=== PATIENT | female | born 1950 | race Caucasian/White ===

== ENCOUNTER → 2016-04-06 | Outpatient (CLI) | payer BC ==
[~2016-04-06] MED LIST: CLOBETASOL EXT; CYCL10TA6 PO; ESTCR PV; LEVO125T4 PO; OXYC1TAB3 PO; TRIATAB3 PO
--- NOTE | 2016-04-06 09:43 | DIAGNOSTIC IMAGING REPORT ---
BILATERAL KNEE RADIOGRAPHS CLINICAL HISTORY: Right knee pain. COMPARISON: Left knee radiographs April 25, 2012. FINDINGS: Right knee: Alignment of the right knee is anatomic. There is spurring of the patella at the insertion of the quadriceps. No fracture or suspicious lesion is identified within the right knee. There is mild narrowing of the patellofemoral joint space with osteophytosis. There is mild osteophytosis within the lateral compartment. There is a possible small right knee joint effusion. Left knee: Alignment of the left knee is anatomic. There is no fracture or joint effusion. There is spurring of the patella at the insertion of the quadriceps. There is mild joint space narrowing within the patellofemoral compartment. There is osteophytosis within the medial and patellofemoral compartments. IMPRESSION: Right knee: 1. Mild arthritis of the right knee, most pronounced within the patellofemoral compartment. 2. Possible small right knee joint effusion. Left knee: Mild arthritis of the left knee, most pronounced within the medial and patellofemoral compartments. Electronically signed by: Pool Boyer M.D. 04/06/2016 9:42 AM Dictated Date/Time: 04/06/2016 9:40 AM
== END | disposition home or self-care (01) ==
LOC: C.RDSM 15:16
PROVIDERS: ATTEND Physical Medicine & Rehabilitation Sports Medicine
DX: M25.561 Pain in right knee (principal); M17.9 Osteoarthritis of knee, unspecified

== ENCOUNTER → 2016-04-24 | Outpatient (CLI) | payer BC ==
--- NOTE | 2016-04-24 16:04 | DIAGNOSTIC IMAGING REPORT ---
MRI right knee RIGHT LOWER EXT JOINT WITHOUT CLINICAL HISTORY: R KNEE PAIN Right pain TECHNIQUE: MRI multi axial acquisition COMPARISON STUDY: None FINDINGS: Signal characteristics the osseous structures are unremarkable throughout. There is no significant bone marrow replacing process. There is a hairline tear posterior horn medial meniscus extending to the inferior meniscal surface. There is no significant substance loss. The lateral meniscus demonstrates a focal hairline tear again extends in to the inferior surface. There is a slight degree of meniscal apical maceration. There are findings of moderate edematous changes in the infrapatellar fat pad. There is no significant joint effusion. Component of mild chondromalacia patella. Medial and lateral patellar retinaculum are intact Anterior and posterior cruciate ligaments are intact. The collateral ligaments structures are unremarkable. IMPRESSION: 1. Focal hairline tear of both the posterior medial and lateral meniscus 2. In both cases, the tear extends to the inferior meniscal surface. 3. No significant meniscal substance loss. 4. Edema of the infrapatellar fat pad. 5. Mild chondromalacia patella. Electronically signed by: Peter Lozada M.D. 04/24/2016 4:03 PM Dictated Date/Time: 04/24/2016 3:53 PM
== END | disposition home or self-care (01) ==
LOC: C.MRI 14:17
PROVIDERS: ATTEND Physical Medicine & Rehabilitation Sports Medicine
DX: M25.561 Pain in right knee (principal)

== ENCOUNTER → 2016-07-05 | Outpatient (CLI) | payer BC ==
[~2016-07-05] MED LIST changes: -LEVO125T4 PO; +LEVO125T5 PO
--- NOTE | 2016-07-05 09:16 | DIAGNOSTIC IMAGING REPORT ---
LEFT FOOT 3 VIEWS HISTORY: LEFT FOOT PAIN COMPARISON: None. FINDINGS: There is no fracture or dislocation. Soft tissue swelling within the first toe. Small plantar and posterior calcaneal spurs. Mild osteoarthritis at the first MTP joint. IMPRESSION: No fractures. Electronically signed by: lAfred Naranjo M.D. 07/05/2016 9:14 AM Dictated Date/Time: 07/05/2016 9:12 AM
== END | disposition home or self-care (01) ==
LOC: C.RAD1850 08:41
PROVIDERS: ATTEND Family Medicine
DX: S99.922A Unspecified injury of left foot, initial encounter (principal); X58.XXXA Exposure to other specified factors, initial encounter

== ENCOUNTER → 2016-10-09 | Outpatient (CLI) | payer BC ==
[~2016-10-09] MED LIST changes: +LEVO125T4 PO; -LEVO125T5 PO
--- NOTE | 2016-10-09 14:33 | MAMMOGRAPHY REPORT ---
BILATERAL DIGITAL SCREENING MAMMOGRAM WITH CAD: 10/09/2016 CLINICAL HISTORY: Routine screening. TECHNIQUE: Bilateral CC and MLO views were obtained. Current study was also evaluated with a Compute r Aided Detection (CAD) system. COMPARISON: Comparison is made to exams dated: 10/06/2015 mammogram, 09/30/2014 mammogram, 09/26/2013 martha mogram, 09/23/2012 mammogram, 09/20/2011 mammogram, and 09/14/2010 mammogram - [facility]. BREAST COMPOSITION: The tissue of both breasts is heterogeneously dense, which may obscure small mas ses. FINDINGS: There are stable benign-appearing coarse calcifications in the anterior aspect of each [address]. Stable intramammary lymph nodes in the upper outer posterior left breast. No suspicious mass, a rchitectural distortion or cluster of microcalcifications is seen. IMPRESSION: ACR BI-RADS CATEGORY 1: NEGATIVE There is no mammographic evidence of malignancy. A 1 year screening mammogram is recommended. The pa tient will receive written notification of the results. Approximately 10% of breast cancers are not detected with mammography. A negative mammographic report should not delay biopsy if a clinically suggestive mass is present. Mitra Fortune M.D. ay/:10/09/2016 14:16:37 Beef Selector: Naima GALLOWAY(Chinmay)(M), [facility] letter sent: Normal 1/2 BI-RADS Code: ACR BI-RADS Category 1: Negative
== END | disposition home or self-care (01) ==
LOC: C.MAMM 07:16
PROVIDERS: ATTEND Family Medicine
DX: Z12.31 Encounter for screening mammogram for malignant neoplasm of breast (principal)

== ENCOUNTER → 2017-02-13 | Outpatient (CLI) | payer OTHER ==
[~2017-02-13] MED LIST changes: -LEVO125T4 PO; +LEVO125T5 PO; +OXYC-90 PO; -OXYC1TAB3 PO
== END | disposition home or self-care (01) ==
LOC: C.MAMM 09:03
PROVIDERS: ATTEND Family Medicine
DX: M85.852 Other specified disorders of bone density and structure, left thigh (principal); M85.851 Other specified disorders of bone density and structure, right thigh

== ENCOUNTER → 2017-03-06 | Outpatient (CLI) | payer OTHER ==
[~2017-03-06] MED LIST changes: -OXYC-90 PO; +OXYC1TAB3 PO
--- NOTE | 2017-03-06 15:16 | DIAGNOSTIC IMAGING REPORT ---
CHEST 2 VIEWS ROUTINE CLINICAL HISTORY: COUGH dyspnea COMPARISON STUDY: No previous studies for comparison. FINDINGS: Parenchymal infiltrate right lower lobe. Lungs otherwise appear clear. Diaphragms smooth. Very slight blunting left lateral costophrenic angle. IMPRESSION: Right lower lobe infiltrate. The above report was generated using voice recognition software. It may contain grammatical, syntax or spelling errors. Electronically signed by: Peter Lozada M.D. 03/06/2017 3:14 PM Dictated Date/Time: 03/06/2017 3:13 PM
== END | disposition home or self-care (01) ==
LOC: C.RAD1850 14:52
PROVIDERS: ATTEND Family Medicine
DX: R05 Cough (principal); R91.8 Other nonspecific abnormal finding of lung field

== ENCOUNTER → 2017-03-22 | Outpatient (CLI) | payer OTHER ==
--- NOTE | 2017-03-22 13:42 | DIAGNOSTIC IMAGING REPORT ---
CHEST 2 VIEWS ROUTINE CLINICAL HISTORY: J15.9 pneumonia COMPARISON STUDY: 03/06/2017 FINDINGS: Improving right infrahilar and right basilar infiltrate. Moderate residual. Left lung is clear. Diaphragms smooth. Pulmonary apices are clear. IMPRESSION: Improving right infrahilar and right basilar infiltrate. Moderate residual. The above report was generated using voice recognition software. It may contain grammatical, syntax or spelling errors. Electronically signed by: Peter Lozada M.D. 03/22/2017 1:41 PM Dictated Date/Time: 03/22/2017 1:40 PM
== END | disposition home or self-care (01) ==
LOC: C.RAD1850 13:31
PROVIDERS: ATTEND Student in an Organized Health Care Education/Training Program
DX: J15.9 Unspecified bacterial pneumonia (principal)

== ENCOUNTER → 2017-10-18 | Outpatient (CLI) | payer OTHER ==
[~2017-10-18] MED LIST changes: +OXYC-90 PO; -OXYC1TAB3 PO
--- NOTE | 2017-10-18 15:11 | MAMMOGRAPHY REPORT ---
BILATERAL DIGITAL SCREENING MAMMOGRAM TOMOSYNTHESIS WITH CAD: 10/18/2017 CLINICAL HISTORY: Routine screening. TECHNIQUE: Breast tomosynthesis in addition to standard 2D mammography was performed. Current study w as also evaluated with a Computer Aided Detection (CAD) system. COMPARISON: Comparison is made to exams dated: 10/09/2016 mammogram, 10/06/2015 mammogram, 09/30/2014 ma mmogram, 09/26/2013 mammogram, 09/23/2012 mammogram, and 09/20/2011 mammogram - [facility]. BREAST COMPOSITION: The tissue of both breasts is heterogeneously dense, which may obscure small mass es. FINDINGS: No suspicious masses, calcifications, or areas of architectural distortion are noted in either breast . There has been no significant interval change compared to prior exams. Scattered bilateral benign-a ppearing calcifications are not significantly changed. IMPRESSION: ACR BI-RADS CATEGORY 2: BENIGN There is no mammographic evidence of malignancy. A 1 year screening mammogram is recommended.( 019) The patient will receive written notification of the results. Some breast cancers are not detected with mammography. A negative mammographic report should not taras y biopsy if a clinically suggestive mass is present. Billie Hutchins M.D. ah/:10/18/2017 13:12:34 Legal Librarian: RT Guerrero(Chinmay)(M), [facility] letter sent: Normal 1/2 BI-RADS Code: ACR BI-RADS Category 2: Benign
== END | disposition home or self-care (01) ==
LOC: C.MAMM 07:07
PROVIDERS: ATTEND Family Medicine
DX: Z12.31 Encounter for screening mammogram for malignant neoplasm of breast (principal)

== ENCOUNTER 2023-07-21 18:58 | Inpatient (IN) ==
[2023-07-21] MEDS: ONDANSETRON INJ 2 MG/ML 2 ML VIAL IV STA (19:31)
[2023-07-21] MEDS: MoRPHine SULFATE 4 MG/ML 1 ML CARP\\VIAL IV STA (19:31)
--- NOTE | 2023-07-21 19:47 | XRay Report ---
XR chest 1V portable HISTORY: port removed, now increased pain COMPARISON: Chest 05/15/2022. FINDINGS: There is been interval removal of the right Port-A-Cath compared to the prior study. There is a punctate radiopaque foreign body remaining within the right upper chest wall. This remains uncha nged. Therefore, this is of doubtful clinical significance. No pneumothorax. No pleural effusions. Th e cardiac silhouette remains borderline enlarged. No focal lung consolidations to suggest a pneumonia . No evidence for pulmonary edema. No acute fractures. IMPRESSION: No acute process. ACT 112: Negative or not required by law. Electronically signed by: Alfred Naranjo M.D. 07/21/2023 7:46 PM
--- NOTE | 2023-07-21 19:50 | Emergency Department Note ---
Impression & Plan Brachiocephalic vein thrombosis ED Provider Note CHIEF COMPLAINT: Right upper chest pain, status post port removal HISTORY OF PRESENT ILLNESS: This 73-year-old female patient past medical history of breast cancer presents to the emergency department with discomfort in the upper chest/neck status post port removal yesterday. Patient states that "feels like a deep vascular pain." She denies ever having a blood clot in the past. She is not currently anticoagulated. REVIEW OF SYSTEMS: A review of systems was performed with positives and pertinent negatives listed in the history of present illness. 10 systems were reviewed and are otherwise negative. ALLERGIES: see below MEDICATIONS: see below PMH: see below SOCIAL HISTORY: see below DDx: DVT, PE, hematoma, pneumonia, pneumothorax among others. PHYSICAL EXAM: Vital signs reviewed. General: Well-appearing 73-year-old female, in no significant distress. HEENT: No scleral icterus, PERRLA, neck supple. Atraumatic. Cardiovascular: Regular rate and rhythm, no extra sounds. Pulmonary: Clear to auscultation bilaterally, normal work of breathing. Abdomen: Soft, nontender, nondistended, positive bowel sounds. Musculoskeletal: Atraumatic, no peripheral edema. Small area of ecchymosis surrounding a 2 cm surgical incision that appears to be well-healing and well- approximated. Neurologic: Patient awake alert and oriented x 3, speech is clear Skin: Warm, dry, no rash EMERGENCY DEPARTMENT COURSE/MDM: This patient was evaluated and appeared to be in no significant distress. IV access was obtained and patient was medicated with IV morphine and Zofran. Ultrasound the right upper extremity was performed and is negative for DVT. I did discuss the case with general surgery, Avinash Grimaldo PA-C. After discussing the case with Dr. Phillips, he has recommended CT of the chest to rule out clot. CT venogram was performed and reveals a small clot in the brachiocephalic vein. Laboratory work was pending. The case was discussed with the hospitalist and anticoagulation will be initiated pending INR/PTT. Patient was informed of the findings and plan for admission. She expressed understanding and agreed. MONITORING: An order for cardiac monitoring was placed and the patient is noted to be in a sinus bradycardia at 55 beats per minute. RADIOLOGY: Chest x-ray to my interpretation reveals no evidence of focal lung consolidation or failure, otherwise defer to radiology's over read. EKG: To my interpretation reveals a sinus rhythm with a second-degree AV block, Mobitz 1. No evidence of acute ischemia. Normal ST segments. DISPOSITION: Admission Past Med/Surg History Problem List (Updated 07/23/23 @ 12:54 by Edda Lovell MD) Brachiocephalic vein thrombosis (Acute) Malignant neoplasm of lower-outer quadrant of left breast of female, estrogen receptor positive (Chronic 01/19/20) Medical History Poor venous access last surgery, had 5-6 attempts, can only use right arm Graves disease Hx of balance disorder (2018) Hx of colonic polyps Port-A-Cath in place (2020) History of left breast cancer (10/2019) left mastectomy 01/15, chemo 03/07/20- 02/2021 History of anxiety History of depression History of chemotherapy (02/2020) TCHP q 21 days cycles 1-6 Pertuzumab + Trastuzumab cycles 7-17 Ziextenzo D2 of cycle Limb alert care status LUE Osteopenia Osteoporosis Hypothyroidism Arthritis Hypertension History of cervical fracture (2012) "pretty good" ROM with neck Surgical History History of removal of Port-a-Cath (07/19/23) Removal Subclavian Access Port(Not Applicable) - Malik Interiano, DO History of infusaport central venous catheter insertion (2020) Hx of salpingo-oophorectomy, bilateral (06/2022) Hx of colonoscopy with polypectomy (2020) History of left mastectomy (01/19/20) History of breast biopsy left - CA H/O: hysterectomy (1995) History of section 1985, 1987 History of myomectomy History of appendectomy History of tonsillectomy history of 1958 Family History Mother Heart disease Hypertension Father Heart disease Aunt No problems noted. Other Family history non-contributory No family history of adverse response to anesthesia No family history of bleeding disorder Social History Smoking Status: Never smoker Tobacco Type: Cigarettes Age Started Using Tobacco: 23; Age Quit Using Tobacco: 23; packs per day: 1; Cigarettes Per Day: 20; Second Hand Exposure: No; Do You Dip or Chew Tobacco: No; Hx Alcohol Use: Yes Alcohol type: beer Alcohol Intake Frequency: 2-3 x/Week Alcohol Intake Frequency Comment: Hx Substance Use: No Preferred Language: Bahraini Communication Ability: Effective Visual Impairment: No Limitations Hearing Ability: Normal [place] Planning Manager Required: Yes and No Beliefs That Will Affect Care: None marital status: Current Living Situation: Spouse Current Living Situation Comment: Lives with , patient is primary caregiver current occupational status: retired current occupation: Former Teacher middle school physics/science How many Children do You have: 2 Feels Safe at Home: Yes Childhood Exposure to Second-Hand Smoke: Yes caffeine: No during the past year weight has: remained stable Dental Care, Regularly: Yes Physical Activity Frequency: 5-6 Times per Week Seatbelt Use: always Sunscreen Use: Yes Assistive Devices: Glasses Allergies Allergies Allergy/AdvReac Type Severity Reaction Status Date / Time nitrofurantoin Allergy Intermediate Hives Verified 07/21/23 21:07 [From Macrobid] Penicillins Allergy Intermediate HIVES, Verified 07/21/23 21:07 JOINTS ACHED, FELT LIKE SKIN WAS CRAWLING. Home Meds Home Medications Medication Instructions Recorded Confirmed cholecalciferol (vitamin D3) 25 1,000 unit PO QDL 01/14/19 07/21/23 mcg (1,000 unit) capsule (Vitamin D3) lactobacillus combination no.4 3 3,000 mmu cells PO QDL 01/14/19 07/21/23 billion cell capsule (Probiotic) levothyroxine 100 mcg tablet 125 mcg PO QAM 01/14/19 07/21/23 multivitamin 1 tab PO QPM 01/14/19 07/21/23 triamterene 37.5 0.5 tab PO Q OTHER DAY 01/14/19 07/21/23 mg-hydrochlorothiazide 25 mg tablet calcium carbonate 600 mg-vitamin 2 tab PO QDL 10/18/20 07/21/23 D3 10 mcg (400 unit) tablet (Calcium with Vitamin D) anastrozole 1 mg tablet 1 mg PO QDL 03/08/21 07/21/23 Previous Rx's Medication Instructions Recorded apixaban 5 mg tablet (Eliquis) 5 mg PO BID #60 tabs 05/26/24 Results & Data (ED) Vital Signs Vital Signs - 24 hr 07/21/23 18:59 07/21/23 19:04 Temperature 36.6 C Temperature Source Temporal Artery Scan Pulse Rate 55 L Pulse Rate [Right Finger] 56 L Respiratory Rate 17 18 Respiratory Depth Normal Blood Pressure 197/80 H Blood Pressure [Right Arm] 175/83 H Blood Pressure Mean 119 Blood Pressure Mean [Right Arm] 113 Pulse Oximetry 98 95 Oxygen Delivery Method Room Air Room Air Sepsis Recent Fever Within 48 Hours No Sepsis New/Unexplained Change in Mental Status No Sepsis Action Taken by Nursing No Action Required Home Medications Current Medication List: was personally reviewed by me Laboratory Data Attestation: I reviewed the patient's lab results. 07/22/23 02:21 07/21/23 22:00 Lab Results 07/21/23 07/21/23 Range/Units 19:31 22:00 WBC 5.55 (4.8-10.8) K/ul RBC 4.12 L (4.20-5.40) M/uL Hgb 12.3 (12.0-16.0) g/dl Hct 35.9 L (37.0-47.0) % MCV 87.1 (80.0-100.0) fL MCH 29.9 (25.0-34.0) pg MCHC 34.3 (32.0-36.0) g/dL RDW Std Deviation 40.5 (36.4-46.3) fL RDW Coeff of Ishan 12.9 (11.5-14.5) % Plt Count 181 (130-400) K/uL MPV 10.1 (9.4-12.4) fL Immature Gran % (Auto) 0.4 % Neut % (Auto) 67.3 % Lymph % (Auto) 22.3 % [place] % (Auto) 8.1 % Eos % (Auto) 1.4 % Baso % (Auto) 0.5 % Neut # (Auto) 3.73 (1.40-6.50) K/uL Lymph # (Auto) 1.24 (1.20-3.40) K/uL Freeborn # (Auto) 0.45 (0.11-0.59) K/uL Eos # (Auto) 0.08 (0.00-0.50) K/uL Baso # (Auto) 0.03 (0.00-0.20) K/uL Immature Gran # (Auto) 0.02 (0.01-0.20) K/uL PT 10.4 (9.0-12.0) Seconds INR 1.0 (0.9-1.1) Sodium 138 (136-145) mmol/L Potassium 4.1 (3.5-5.1) mmol/L Chloride 103 (98-107) mmol/L Carbon Dioxide 30 (21-32) mmol/L Anion Gap 5 (3-11) BUN 20 (6-23) mg/dl Creatinine 0.95 (0.6-1.2) mg/dl Est Cr Clr Drug Dosing 54.8 ml/min Est GFR ( Amer) 69.8 ml/min Est GFR (Non-Af Amer) 60.3 ml/min BUN/Creatinine Ratio 21.1 H (10-20) Glucose 92 (70-99(Fasting)) mg/dl Calcium 9.4 (8.6-10.3) mg/dl Magnesium 1.6 L (1.7-2.4) mg/dl Total Bilirubin 0.3 (0.2-1.0) mg/dl AST 18 (13-39) U/L ALT 13 (7-52) U/L Alkaline Phosphatase 46 (34-104) U/L Troponin I High Sens 10.0 (0-14) pg/ml Total Protein 6.3 (6.0-8.3) gm/dl Albumin 4.1 (3.4-5.0) gm/dl Globulin 2.2 L (2.5-4.0) gm/dl Albumin/Globulin Ratio 1.9 (0.9-2) Administered Medications Discontinued Medications Acetaminophen (Acetaminophen 325 Mg Tab) 650 mg PO Q4H PRN PRN Reason: Pain or Fever Stop: 08/21/23 02:06 Last Admin: 07/22/23 02:44 Dose: 650 mg Documented By: RACHEL Apixaban (Apixaban 5 Mg Tablet) 10 mg PO BID [facility] Stop: 07/28/23 21:01 Last Admin: 07/22/23 09:38 Dose: 10 mg Documented By: NICHO Heparin Sodium/Dextrose (Heparin Iv Adult Wt-Based Standard *No* Initial Bolus Protocol) 1 each IV ONE STA; Protocol Stop: 07/22/23 02:08 Last Admin: 07/22/23 02:43 Dose: 1 each Documented By: RACHEL Hydralazine HCl (Hydralazine Hcl 20 Mg/Ml Vial) 5 mg IV NOW ONE Stop: 07/21/23 22:49 Last Admin: 07/21/23 23:19 Dose: 5 mg Documented By: RYAN Heparin Sodium/Dextrose (Heparin Sodium/Dextrose) 25,000 units in 500 mls @ 24 mls/hr IV .[id number] [facility]; Protocol Stop: 08/21/23 02:06 Last Titration: 07/22/23 09:47 Dose: Infused Documented By: NICHO Co-signed By: JOSHUA Titration: 07/22/23 06:58 Dose: 1,200 units/hr, 24 mls/hr Documented By: NICHO Co-signed By: RACHEL Admin: 07/22/23 02:42 Dose: 1,200 units/hr, 24 mls/hr Documented By: RACHEL Co-signed By: NDL Magnesium Sulfate/Dextrose (Magnesium Sulfate / D5w) 1 gm in 100 mls @ 50 mls/hr IV Q2H [facility] Stop: 07/22/23 06:06 Last Infusion: 07/22/23 05:00 Dose: Infused Documented By: Admin: 07/22/23 02:42 Dose: 50 mls/hr Documented By: Infusion: 07/22/23 02:42 Dose: Infused Documented By: Admin: 07/22/23 02:42 Dose: 50 mls/hr Documented By: RACHEL Ioversol (Optiray 320 125ml) 120 ml IV ONCE ONE Stop: 07/21/23 21:16 Last Admin: 07/21/23 21:15 Dose: 120 ml Documented By: STEPHENIE Levothyroxine Sodium (Levothyroxine Sodium 125 Mcg Tablet) 125 mcg PO DAILYBB [facility] Stop: 08/21/23 06:29 Last Admin: 07/22/23 06:02 Dose: 125 mcg Documented By: YINKA Morphine Sulfate (Morphine Sulfate 4 Mg/Ml 1 Ml Carp\\Vial) 4 mg IV NOW STA Stop: 07/21/23 19:20 Last Admin: 07/21/23 19:31 Dose: 4 mg Documented By: RYAN Morphine Sulfate (Morphine Sulfate 2 Mg/Ml Carp) 2 mg IV Q4H PRN PRN Reason: Pain 5-10 Stop: 08/05/23 02:06 Last Admin: 07/22/23 02:44 Dose: 2 mg Documented By: RACHEL Ondansetron HCl (Ondansetron Inj 2 Mg/Ml 2 Ml Vial) 4 mg IV NOW STA Stop: 07/21/23 19:20 Last Admin: 07/21/23 19:31 Dose: 4 mg Documented By: TJS Imaging Data Radiologist's Impression: Chest X-Ray 07/21/23 19:12 XR chest 1V portable HISTORY: port removed, now increased pain COMPARISON: Chest 05/15/2022. FINDINGS: There is been interval removal of the right Port-A-Cath compared to the prior study. There is a punctate radiopaque foreign body remaining within the right upper chest wall. This remains unchanged. Therefore, this is of doubtful clinical significance. No pneumothorax. No pleural effusions. The cardiac silhouette remains borderline enlarged. No focal lung consolidations to suggest a pneumonia. No evidence for pulmonary edema. No acute fractures. IMPRESSION: No acute process. ACT 112: Negative or not required by law. Electronically signed by: Alfred Naranjo M.D. 07/21/2023 7:46 PM Venous Doppler Study 07/21/23 19:29 Exam(s): US VENOUS RIGHT UPPER EXTREMITY EXAM: US Duplex Right Upper Extremity Veins CLINICAL HISTORY: Reason for exam: s/p port removal, pain. TECHNIQUE: Real-time duplex ultrasound scan of the right upper extremity veins integrating B-mode two-dimensional vascular structure, Doppler spectral analysis, color flow Doppler imaging and compression. COMPARISON: No relevant prior studies available. FINDINGS: Deep veins: Unremarkable. No DVT in the internal jugular, subclavian, axillary, or brachial veins. The veins demonstrate normal color flow, are normally compressible, with normal phasic flow and/or augmentation response. Superficial veins: Unremarkable. No thrombus in the visualized basilic and cephalic veins. Soft tissues: No acute abnormality. IMPRESSION: Normal right upper extremity duplex venous ultrasound. Electronically signed by: Jasen Hi M.D. 07/21/23 21:05 PM Discharge Plan Visit Data Chief Complaint: Shoulder Pain Stated Complaint: SITE PAIN/INCISION/UNDER RT CLAVICLE, SHOULDER P ED Provider: Edda Lovell Discharge Problem: Brachiocephalic vein thrombosis Patient Disposition: Home - Self-Care Condition: Good Discharge Instructions Interventions: ED Discharge Assessment Last Done: 07/22/23 01:56
--- NOTE | 2023-07-21 21:06 | Ultrasound Report ---
Exam(s): US VENOUS RIGHT UPPER EXTREMITY EXAM: US Duplex Right Upper Extremity Veins CLINICAL HISTORY: Reason for exam: s/p port removal, pain. TECHNIQUE: Real-time duplex ultrasound scan of the right upper extremity veins integrating B-mode two-dimensional vascular structure, Doppler spectral analysis, color flow Doppler imaging and compression. COMPARISON: No relevant prior studies available. FINDINGS: Deep veins: Unremarkable. No DVT in the internal jugular, subclavian, axillary, or brachial veins. The veins demonstrate normal color flow, are normally compressible, with normal phasic flow and/or augmentation response. Superficial veins: Unremarkable. No thrombus in the visualized basilic and cephalic veins. Soft tissues: No acute abnormality. IMPRESSION: Normal right upper extremity duplex venous ultrasound. Electronically signed by: Jasen Hi M.D. 07/21/23 21:05 PM
[2023-07-21] MEDS: OPTIRAY 320 125ml IV ONE (21:15)
[2023-07-21 22:37] LABS: Basophils # (auto) 0.03 K/uL (0.00-0.20); Basophils % (auto) 0.5 %; Eosinophils # (auto) 0.08 K/uL (0.00-0.50); Eosinophils % (auto) 1.4 %; Hematocrit (blood only) 35.9 % (37.0-47.0); Hemoglobin 12.3 g/dl (12.0-16.0); Immature Granulocytes # (auto) 0.02 K/uL (0.01-0.20); Immature Granulocytes % (auto) 0.4 %; Lymphocytes # (auto) 1.24 K/uL (1.20-3.40); Lymphocytes % (auto) 22.3 %; Mean Corpuscular Hemoglobin 29.9 pg (25.0-34.0); Mean Corpuscular Hgb Conc 34.3 g/dL (32.0-36.0); Mean Corpuscular Volume 87.1 fL (80.0-100.0); Mean Platelet Volume 10.1 fL (9.4-12.4); Monocytes # (auto) 0.45 K/uL (0.11-0.59); Monocytes % (auto) 8.1 %; Neutrophils # (auto) 3.73 K/uL (1.40-6.50); Neutrophils % (auto) 67.3 %; Platelet Count 181 K/uL (130-400); RDW Coefficient of Variation 12.9 % (11.5-14.5); RDW Standard Deviation 40.5 fL (36.4-46.3); Red Blood Count 4.12 M/uL (4.20-5.40); White Blood Count 5.55 K/ul (4.8-10.8)
--- NOTE | 2023-07-21 22:45 | CT Scan Report ---
Exam(s): CT VENOGRAPHY EXAM: CT Venogram Chest With Intravenous Contrast CLINICAL HISTORY: Reason for exam: R upper chest pain after port removal, clot?. TECHNIQUE: Axial computed tomographic angiography images of the chest with intravenous contrast. CTDI is 12.53 mGy and DLP is 417.08 mGy-cm. Automated exposure control was utilized for the study. A dose lowering technique was utilized adhering to the principles of ALARA. 3D and MIP reconstructed images were created and reviewed. COMPARISON: No relevant prior studies available. FINDINGS: Chest wall venous structures: Subcutaneous gas and infiltration overlying the right pectoralis muscle anterior to the clavicle with small surgical clip consistent with a recent indwelling catheter removal. Small amount of focal subcutaneous hemorrhage. Gas extends into the subcutaneous fat deep to the pectoralis muscle to the level of the right subclavian vein. Inhomogeneous contrast opacification of the right subclavian vein. Thin linear filling defect just proximal to the SVC within the right brachiocephalic vein and superior vena cava consistent with small amount of intraluminal thrombus (coronal series 400 images 23 and 24). The visualized inferior aspect of the inferior vena cava, SVC and left-sided venous structures are all intact. Pulmonary arteries: No pulmonary embolism. Aorta: No thoracic aortic aneurysm or dissection. Lungs: No consolidation. Pleural space: No pleural effusion. No pneumothorax. Heart: No cardiomegaly. No pericardial effusion. No evidence of RV dysfunction. Bones/joints: No acute fracture. Degenerative changes of the spine. Soft tissues: Left breast implant. Abdomen: Multiple subcentimeter hypodense lesions scattered in the liver too small to characterize. IMPRESSION: Right anterior chest wall gas and infiltration consistent with recent indwelling catheter removal. Patent right axillary and subclavian vein through the SVC. Small nonoccluding thin linear filling defect within the right brachiocephalic vein consistent with minimal amount of thrombus. No pulmonary embolism. Electronically signed by: Jasen Hi M.D. 07/21/23 22:44 PM
[2023-07-21 22:53] LABS: Albumin Globulin Ratio 1.9 (0.9-2); Albumin Level 4.1 gm/dl (3.4-5.0); BUN Creatinine Ratio 21.1 (10-20); Bilirubin,Total 0.3 mg/dl (0.2-1.0); Calcium 9.4 mg/dl (8.6-10.3); Creatinine Clr Calc Pharmacy 54.8 ml/min; Est GFR (African American) 69.8 ml/min; Est GFR (Non-African American) 60.3 ml/min; Globulin 2.2 gm/dl (2.5-4.0); Potassium 4.1 mmol/L (3.5-5.1); Total Protein 6.3 gm/dl (6.0-8.3)
--- NOTE | 2023-07-21 22:57 | History & Physical Report ---
Date of Service July 21, 2023 Assessment & Plan (1) Brachiocephalic vein thrombosis: (2) History of removal of Port-a-Cath: (3) Hypertension: (4) Hypothyroidism: (5) History of left breast cancer: (6) Osteoporosis: Gaby Mae is a 73F w/ PMH of hypothyroidism, hypertension, osteoporosis and L breast cancer s/p resection who presents for pain in her neck and upper chest after Port-a-cath removal 07/19/23. R Brachiocephalic Vein Thrombosis - Presenting w/ pain at right upper chest and neck w/ mild edema of the R hand/arm - Recent Port-a-Cath removal 07/19/23 No evidence of infection at side (no erythema or purulence), no leukocytosis - Labs unremarkable - CT Venogram w/ Right anterior chest wall gas and infiltration consistent with recent indwelling catheter removal. Patent right axillary and subclavian vein through the SVC. Small nonoccluding thin linear filling defect within the right brachiocephalic vein consistent with minimal amount of thrombus. No pulmonary embolism. - Given patient's history of breast cancer and recent 'trauma' to the area, would recommend therapeutic anticoagulation - Start Heparin with goal to transition to DOAC (Eliquis) for discharge Discussed duration of therapy with patient, will discuss further at outpatient visits (patient's PCP) - Patient's pain controlled with Morphine on admission Ordered Tylenol PRN and Morphine PRN Bradycardia/Mobitz I - Noted EKG on presentation - Longstanding history of bradycardia on EKG (per patient) Of note, she is very active at baseline - Follow on telemetry while inpatient Hypertension - Chronic, managed with Triamterene-HCTZ outpatient - Patient s/p Hydralazine in ED, patient remained 210/90 on admission - PRN Hydralazine 10 mg IV Q4h ordered on admission for SBP > 200 and DBP > 100 Note to notify provider prior to administration Unable to use PRN beta blockers given bradycardia Chronic Conditions: - Hypothyroidism: Continue Levothyroxine - Breast Cancer: Continue Anastrazole - Osteoporosis: Continue multivitamin, Vitamin D3, and Calcium supplements FEN: Regular Code status: Full Code DVT ppx: Therapeutic Heparin Isolation: None Dispo:Med/Surg w/ Tele History of Present Illness Chief Complaint: Neck Pain Primary Care Provider: DO Carmelita Lowe is a 73F w/ PMH of hypothyroidism, hypertension, osteoporosis and L breast cancer s/p resection who presents for pain in her neck and upper chest after Port-a-cath removal 07/19/23. Patient notes that she had her R. subclavian access port removed 07/19/23. She noted feeling well throughout the day 07/21/23, but that she may have 'overdone it' as she was weeding and mowing her grass. This morning, she started having a deep pain in the right side of her upper chest and neck, she attempted to continue to weed her garden today, but ultimately returned indoors in tears as her neck was hurting so significantly. Patient denies any fevers, chills, or edema at the port-site. Incision has been non-erythematous w/o drainage. She denies chest pain or dyspnea. She is not experiencing headache, vision change, or UE weakness. Patient lives independently and cares for her w/ dementia at baseline. She is very active and enjoys walking, biking, skiing, and yoga. Patient has a history of malignant neoplasm of the left breast, but is status post resection and chemo therapy, recent scans (this year) have all been negative, hence proceeding with port removal. She has had no recent changes in medications. ED Course: Morphine, Zofran, Hydralazine Allergies Allergy/AdvReac Type Severity Reaction Status Date / Time nitrofurantoin Allergy Intermediate Hives Verified 07/21/23 21:07 [From Macrobid] Penicillins Allergy Intermediate HIVES, Verified 07/21/23 21:07 JOINTS ACHED, FELT LIKE SKIN WAS CRAWLING. Home Medications Medication Instructions Recorded Confirmed Type cholecalciferol (vitamin D3) 25 1,000 unit PO QDL 01/14/19 07/21/23 History mcg (1,000 unit) capsule (Vitamin D3) lactobacillus combination no.4 3 3,000 mmu cells PO QDL 01/14/19 07/21/23 History billion cell capsule (Probiotic) levothyroxine 100 mcg tablet 125 mcg PO QAM 01/14/19 07/21/23 History multivitamin 1 tab PO QPM 01/14/19 07/21/23 History triamterene 37.5 0.5 tab PO Q OTHER DAY 01/14/19 07/21/23 History mg-hydrochlorothiazide 25 mg tablet calcium carbonate 600 mg-vitamin 2 tab PO QDL 10/18/20 07/21/23 History D3 10 mcg (400 unit) tablet (Calcium with Vitamin D) anastrozole 1 mg tablet 1 mg PO QDL 03/08/21 07/21/23 History apixaban 5 mg tablet (Eliquis) 5 mg PO BID #60 tabs 07/22/23 Rx Past Med/Surg History Problem List (Updated 07/22/23 @ 00:28 by Jermaine Mcclelland DO) Brachiocephalic vein thrombosis Malignant neoplasm of lower-outer quadrant of left breast of female, estrogen receptor positive (Chronic 01/19/20) Medical History Poor venous access last surgery, had 5-6 attempts, can only use right arm Graves disease Hx of balance disorder (2018) Hx of colonic polyps Port-A-Cath in place (2020) History of left breast cancer (10/2019) left mastectomy 01/15, chemo 03/07/20- 02/2021 History of anxiety History of depression History of chemotherapy (02/2020) TCHP q 21 days cycles 1-6 Pertuzumab + Trastuzumab cycles 7-17 Ziextenzo D2 of cycle Limb alert care status LUE Osteopenia Osteoporosis Hypothyroidism Arthritis Hypertension History of cervical fracture (2012) "pretty good" ROM with neck Surgical History History of removal of Port-a-Cath (07/19/23) Removal Subclavian Access Port(Not Applicable) - Malik Interiano DO History of infusaport central venous catheter insertion (2020) Hx of salpingo-oophorectomy, bilateral (06/2022) Hx of colonoscopy with polypectomy (2020) History of left mastectomy (01/19/20) History of breast biopsy left - CA H/O: hysterectomy (1995) History of section 1985, 1987 History of myomectomy History of appendectomy History of tonsillectomy history of 1958 Family History Mother Heart disease Hypertension Father Heart disease Aunt No problems noted. Other Family history non-contributory No family history of adverse response to anesthesia No family history of bleeding disorder Social History Smoking Status: Never smoker Tobacco Type: Cigarettes Age Started Using Tobacco: 23; Age Quit Using Tobacco: 23; packs per day: 1; Cigarettes Per Day: 20; Second Hand Exposure: No; Do You Dip or Chew Tobacco: No; Hx Alcohol Use: Yes Alcohol type: beer Alcohol Intake Frequency: 2-3 x/Week Alcohol Intake Frequency Comment: Hx Substance Use: No Preferred Language: Colombian Communication Ability: Effective Visual Impairment: No Limitations Hearing Ability: Normal Research Support Specialist Required: Yes and No Beliefs That Will Affect Care: None marital status: Current Living Situation: Spouse Current Living Situation Comment: Lives with , patient is primary caregiver current occupational status: retired current occupation: Former Teacher middle school physics/science How many Children do You have: 2 Feels Safe at Home: Yes Childhood Exposure to Second-Hand Smoke: Yes caffeine: No during the past year weight has: remained stable Dental Care, Regularly: Yes Physical Activity Frequency: 5-6 Times per Week Seatbelt Use: always Sunscreen Use: Yes Assistive Devices: Glasses Physical Exam Physical Exam: Gen: NAD, alert, interactive HEENT: Supple, no LAD, no thyromegaly, no JVD Neck: Mild TTP of right lateral neck and collarbone area w/o edema or erythema, no facial erythema Resp:Non-labored, no wheezing/rhonchi/rales, CTAB CV:bradycardic, regular rhythm, normal S1/S2, no M/R/G Chest: Left upper chest port-a-cath incision clean, dry w/o erythema or purulence, no TTP at site Abd: Soft, non-distended, no TTP, normoactive bowels, no masses Extr: LE - 2+ dp bilaterally, no edema, UE - mild edema or RUE (diminished vascularity of R hand) Results & Data Results & Data Vital Signs (Past 12 Hours) Vital Signs Temp Pulse Pulse Resp BP BP Pulse Ox 07/21/23 22:00 49 L 19 175/88 H 97 07/21/23 21:40 48 L 177/91 H 99 07/21/23 21:00 48 L 14 191/98 H 97 07/21/23 20:55 49 L 14 180/101 H 98 07/21/23 19:04 36.6 C 55 L 18 197/80 H 95 07/21/23 18:59 56 L 17 175/83 H 98 O2 Del Method 07/21/23 22:00 Room Air 07/21/23 21:40 Room Air 07/21/23 21:00 Room Air 07/21/23 20:55 Room Air 07/21/23 19:04 Room Air 07/21/23 18:59 Room Air Supervising Physician Co-Signing Physician Notes Patient seen and examined, chart reviewed, case discussed with Dr. Mcclelland and I agree with the assessment and plan as above Resident Activity Tracking Resident Involvement: Resident Care Provided Care Provided: Adult Hospital Medicine (Night)
[2023-07-21 23:11] LABS: Magnesium 1.6 mg/dl (1.7-2.4)
[2023-07-21] MEDS: hydrALAZINE HCL 20 MG/ML VIAL IV ONE (23:19)
[2023-07-21 23:34] LABS: Prothrombin Time 10.4 Seconds (9.0-12.0)
--- NOTE | 2023-07-22 01:38 | Billing Data ---
Date of Service July 21, 2023 Coding Level of Care Code 64214 INT INP/OBS CARE
[2023-07-22] MEDS ORDERED: hydrALAZINE HCL 20 MG/ML VIAL IV PRN (02:07)
[2023-07-22] MEDS ORDERED: POLYETHYLENE (MIRALAX) 17 GM PACK PO PRN (02:07)
[2023-07-22] MEDS ORDERED: ONDANSETRON INJ 2 MG/ML 2 ML VIAL IV PRN (02:07)
[2023-07-22] MEDS: HEPARIN SODIUM/DEXTROSE 25,000 UNITS/500 ML BAG IV SCH (02:42)
[2023-07-22] MEDS: MAGNESIUM SULFATE / D5W 1 GM/100 ML BAG IV SCH (02:42)
[2023-07-22] MEDS: Heparin IV Adult Wt-Based Standard *NO* INITIAL Bolus Protocol IV STA (02:43)
[2023-07-22] MEDS: ACETAMINOPHEN 325 MG TAB PO PRN (02:44)
[2023-07-22] MEDS: MoRPHine SULFATE 2 MG/ML CARP IV PRN (02:44)
[2023-07-22 03:07] LABS: Partial Thromboplastin Ratio 0.9; Partial Thromboplastin Time 24 Seconds (21-31); Prothrombin Time 10.7 Seconds (9.0-12.0)
[2023-07-22 03:25] LABS: Basophils # (auto) 0.03 K/uL (0.00-0.20); Basophils % (auto) 0.5 %; Eosinophils % (auto) 1.7 %; Hematocrit (blood only) 36.3 % (37.0-47.0); Hemoglobin 12.6 g/dl (12.0-16.0); Immature Granulocytes # (auto) 0.02 K/uL (0.01-0.20); Immature Granulocytes % (auto) 0.3 %; Lymphocytes # (auto) 1.39 K/uL (1.20-3.40); Lymphocytes % (auto) 23.2 %; Mean Corpuscular Hgb Conc 34.7 g/dL (32.0-36.0); Mean Corpuscular Volume 86.4 fL (80.0-100.0); Mean Platelet Volume 9.9 fL (9.4-12.4); Monocytes # (auto) 0.54 K/uL (0.11-0.59); Neutrophils # (auto) 3.91 K/uL (1.40-6.50); Neutrophils % (auto) 65.3 %; Platelet Count 195 K/uL (130-400); RDW Coefficient of Variation 12.9 % (11.5-14.5); RDW Standard Deviation 40.3 fL (36.4-46.3); White Blood Count 5.99 K/ul (4.8-10.8)
[2023-07-22] MEDS: LEVOTHYROXINE SODIUM 125 MCG TABLET PO SCH (06:02)
[2023-07-22 06:17] VITALS: O2SAT 95
--- NOTE | 2023-07-22 07:08 | Hospitalist Progress Note ---
Date of Service July 22, 2023 Assessment & Plan (1) Brachiocephalic vein thrombosis: (2) History of removal of Port-a-Cath: (3) Hypertension: (4) Hypothyroidism: (5) History of left breast cancer: (6) Osteoporosis: Gaby Mae is a 73F w/ PMH of hypothyroidism, hypertension, osteoporosis and L breast cancer s/p resection who presents for pain in her neck and upper chest after Port-a-cath removal 07/19/23. R Brachiocephalic Vein Thrombosis - Presenting w/ pain at right upper chest and neck w/ mild edema of the R hand/arm - Recent Port-a-Cath removal 07/19/23 No evidence of infection at side (no erythema or purulence), no leukocytosis - Labs unremarkable - CT Venogram w/ Right anterior chest wall gas and infiltration consistent with recent indwelling catheter removal. Patent right axillary and subclavian vein through the SVC. Small nonoccluding thin linear filling defect within the right brachiocephalic vein consistent with minimal amount of thrombus. No pulmonary embolism. - Given patient's history of breast cancer and recent 'trauma' to the area, would recommend therapeutic anticoagulation - Start Heparin with goal to transition to DOAC (Eliquis) for discharge Discussed duration of therapy with patient, will discuss further at outpatient visits (patient's PCP) - Patient's pain controlled with Morphine on admission Ordered Tylenol PRN and Morphine PRN Bradycardia/Mobitz I - Noted EKG on presentation - Longstanding history of bradycardia on EKG (per patient) Of note, she is very active at baseline - Follow on telemetry while inpatient Hypertension - Chronic, managed with Triamterene-HCTZ outpatient - Patient s/p Hydralazine in ED, patient remained 210/90 on admission - PRN Hydralazine 10 mg IV Q4h ordered on admission for SBP > 200 and DBP > 100 Note to notify provider prior to administration Unable to use PRN beta blockers given bradycardia Chronic Conditions: - Hypothyroidism: Continue Levothyroxine - Breast Cancer: Continue Anastrazole - Osteoporosis: Continue multivitamin, Vitamin D3, and Calcium supplements FEN: Regular Code status: Full Code DVT ppx: Therapeutic Heparin Isolation: None Dispo:Med/Surg w/ Tele Admission and Anticipated Discharge Date Admission Date: July 21, 2023 Review of Systems Review of Systems: All systems reviewed & are unremarkable except as noted in HPI & below Physical Exam Physical Exam: Gen: NAD, alert, interactive HEENT: Supple, no LAD, no thyromegaly, no JVD Neck: Mild TTP of right lateral neck and collarbone area w/o edema or erythema, no facial erythema Resp:Non-labored, no wheezing/rhonchi/rales, CTAB CV:bradycardic, regular rhythm, normal S1/S2, no M/R/G Chest: Left upper chest port-a-cath incision clean, dry w/o erythema or purulence, no TTP at site Abd: Soft, non-distended, no TTP, normoactive bowels, no masses Extr: LE - 2+ dp bilaterally, no edema, UE - mild edema or RUE (diminished vascularity of R hand) Results & Data Results & Data Vital Signs (Past 12 Hours) Vital Signs Temp Pulse Pulse Resp BP BP Pulse Ox 07/22/23 06:15 36.4 C L 48 L 18 146/68 H 95 07/22/23 03:12 36.6 C 71 18 179/65 H 98 07/22/23 03:11 47 L 07/22/23 02:51 36.4 C L 48 L 16 174/85 H 97 07/22/23 02:07 36.5 C 71 18 179/65 H 95 07/22/23 02:07 07/22/23 01:56 52 L 13 142/81 H 95 07/22/23 01:00 51 L 17 151/79 H 95 07/22/23 00:30 54 L 17 157/78 H 95 07/22/23 00:00 50 L 18 168/111 H 96 07/21/23 23:02 52 L 17 211/82 H 98 07/21/23 22:30 47 L 17 182/105 H 95 07/21/23 22:01 45 L 15 175/88 H 96 07/21/23 22:00 49 L 19 175/88 H 97 07/21/23 21:40 48 L 177/91 H 99 07/21/23 21:00 48 L 14 191/98 H 97 07/21/23 20:55 49 L 14 180/101 H 98 Pulse Ox O2 Del Method O2 Del Method 07/22/23 06:15 Room Air 07/22/23 03:12 Room Air 07/22/23 03:11 07/22/23 02:51 Room Air 07/22/23 02:07 Room Air 07/22/23 02:07 98 Room Air 07/22/23 01:56 Room Air 07/22/23 01:00 Room Air 07/22/23 00:30 Room Air 07/22/23 00:00 Room Air 07/21/23 23:02 Room Air 07/21/23 22:30 Room Air 07/21/23 22:01 Room Air 07/21/23 22:00 Room Air 07/21/23 21:40 Room Air 07/21/23 21:00 Room Air 07/21/23 20:55 Room Air Resident Activity Tracking Resident Involvement: Resident Care Provided Care Provided: Adult Hospital Medicine
[2023-07-22 07:48] VITALS: BP 126/72; RESP 16; TEMP 98.2
--- NOTE | 2023-07-22 09:16 | Discharge Summary ---
Date of Service July 22, 2023 Admission HPI Per Admitting Provider Carmelita is a 73F w/ PMH of hypothyroidism, hypertension, osteoporosis and L breast cancer s/p resection who presents for pain in her neck and upper chest after Port-a-cath removal 07/19/23. Patient notes that she had her R. subclavian access port removed 07/19/23. She noted feeling well throughout the day 07/21/23, but that she may have 'overdone it' as she was weeding and mowing her grass. This morning, she started having a deep pain in the right side of her upper chest and neck, she attempted to continue to weed her garden today, but ultimately returned indoors in tears as her neck was hurting so significantly. Patient denies any fevers, chills, or edema at the port-site. Incision has been non-erythematous w/o drainage. She denies chest pain or dyspnea. She is not experiencing headache, vision change, or UE weakness. Patient lives independently and cares for her w/ dementia at baseline. She is very active and enjoys walking, biking, skiing, and yoga. Patient has a history of malignant neoplasm of the left breast, but is status post resection and chemo therapy, recent scans (this year) have all been negative, hence proceeding with port removal. She has had no recent changes in medications. ED Course: Morphine, Zofran, Hydralazine Principal Diagnosis DVT Discharge Exam Gen: NAD, alert, interactive HEENT: Supple, no LAD, no thyromegaly, no JVD Neck: previous tenderness of neck and collarbone area now resolved w/o edema or erythema, no facial erythema Resp:Non-labored, no wheezing/rhonchi/rales, CTAB CV:bradycardic, regular rhythm Chest: Left upper chest port-a-cath incision c/d/i Abd: Soft, non-distended, no TTP Extr: LE - 2+ dp bilaterally, no edema Discharge Data Allergies Allergy/AdvReac Type Severity Reaction Status Date / Time nitrofurantoin Allergy Intermediate Hives Verified 07/21/23 21:07 [From Macrobid] Penicillins Allergy Intermediate HIVES, Verified 07/21/23 21:07 JOINTS ACHED, FELT LIKE SKIN WAS CRAWLING. Consultations 07/21/23 22:49 ED Decision to Admit Stat Ordered Studies Laboratory Results WBC 5.99 K/ul (4.8-10.8) 07/22/23 02:21 RBC 4.20 M/uL (4.20-5.40) 07/22/23 02:21 Hgb 12.6 g/dl (12.0-16.0) 07/22/23 02:21 Hct 36.3 % (37.0-47.0) L 07/22/23 02:21 MCV 86.4 fL (80.0-100.0) 07/22/23 02:21 MCH 30.0 pg (25.0-34.0) 07/22/23 02:21 MCHC 34.7 g/dL (32.0-36.0) 07/22/23 02:21 RDW Std Deviation 40.3 fL (36.4-46.3) 07/22/23 02:21 RDW Coeff of Ishan 12.9 % (11.5-14.5) 07/22/23 02:21 Plt Count 195 K/uL (130-400) 07/22/23 02:21 MPV 9.9 fL (9.4-12.4) 07/22/23 02:21 Immature Gran % (Auto) 0.3 % 07/22/23 02:21 Neut % (Auto) 65.3 % 07/22/23 02:21 Lymph % (Auto) 23.2 % 07/22/23 02:21 [place] % (Auto) 9.0 % 07/22/23 02:21 Eos % (Auto) 1.7 % 07/22/23 02:21 Baso % (Auto) 0.5 % 07/22/23 02:21 Neut # (Auto) 3.91 K/uL (1.40-6.50) 07/22/23 02:21 Lymph # (Auto) 1.39 K/uL (1.20-3.40) 07/22/23 02:21 [place] # (Auto) 0.54 K/uL (0.11-0.59) 07/22/23 02:21 Eos # (Auto) 0.10 K/uL (0.00-0.50) 07/22/23 02:21 Baso # (Auto) 0.03 K/uL (0.00-0.20) 07/22/23 02:21 Immature Gran # (Auto) 0.02 K/uL (0.01-0.20) 07/22/23 02:21 PT 10.7 Seconds (9.0-12.0) 07/22/23 02:21 INR 1.0 (0.9-1.1) 07/22/23 02:21 APTT 24 Seconds (21-31) 07/22/23 02:21 PTT Ratio 0.9 07/22/23 02:21 Sodium 138 mmol/L (136-145) 07/21/23 22:00 Potassium 4.1 mmol/L (3.5-5.1) 07/21/23 22:00 Chloride 103 mmol/L (98-107) 07/21/23 22:00 Carbon Dioxide 30 mmol/L (21-32) 07/21/23 22:00 Anion Gap 5 (3-11) 07/21/23 22:00 BUN 20 mg/dl (6-23) 07/21/23 22:00 Creatinine 0.95 mg/dl (0.6-1.2) 07/21/23 22:00 Est Cr Clr Drug Dosing 54.8 ml/min 07/21/23 22:00 Est GFR ( Amer) 69.8 ml/min 07/21/23 22:00 Est GFR (Non-Af Amer) 60.3 ml/min 07/21/23 22:00 BUN/Creatinine Ratio 21.1 (10-20) H 07/21/23 22:00 Glucose 92 mg/dl (70-99(Fasting)) 07/21/23 22:00 Calcium 9.4 mg/dl (8.6-10.3) 07/21/23 22:00 Magnesium 1.6 mg/dl (1.7-2.4) L 07/21/23 22:00 Total Bilirubin 0.3 mg/dl (0.2-1.0) 07/21/23 22:00 AST 18 U/L (13-39) 07/21/23 22:00 ALT 13 U/L (7-52) 07/21/23 22:00 Alkaline Phosphatase 46 U/L (34-104) 07/21/23 22:00 Troponin I High Sens 10.0 pg/ml (0-14) 07/21/23 22:00 Total Protein 6.3 gm/dl (6.0-8.3) 07/21/23 22:00 Albumin 4.1 gm/dl (3.4-5.0) 07/21/23 22:00 Globulin 2.2 gm/dl (2.5-4.0) L 07/21/23 22:00 Albumin/Globulin Ratio 1.9 (0.9-2) 07/21/23 22:00 Impressions Chest X-Ray 07/21/23 19:12 XR chest 1V portable HISTORY: port removed, now increased pain COMPARISON: Chest 05/15/2022. FINDINGS: There is been interval removal of the right Port-A-Cath compared to the prior study. There is a punctate radiopaque foreign body remaining within the right upper chest wall. This remains unchanged. Therefore, this is of doubtful clinical significance. No pneumothorax. No pleural effusions. The cardiac silhouette remains borderline enlarged. No focal lung consolidations to suggest a pneumonia. No evidence for pulmonary edema. No acute fractures. IMPRESSION: No acute process. ACT 112: Negative or not required by law. Electronically signed by: Alfred Naranjo M.D. 07/21/2023 7:46 PM Venous Doppler Study 07/21/23 19:29 Exam(s): US VENOUS RIGHT UPPER EXTREMITY EXAM: US Duplex Right Upper Extremity Veins CLINICAL HISTORY: Reason for exam: s/p port removal, pain. TECHNIQUE: Real-time duplex ultrasound scan of the right upper extremity veins integrating B-mode two-dimensional vascular structure, Doppler spectral analysis, color flow Doppler imaging and compression. COMPARISON: No relevant prior studies available. FINDINGS: Deep veins: Unremarkable. No DVT in the internal jugular, subclavian, axillary, or brachial veins. The veins demonstrate normal color flow, are normally compressible, with normal phasic flow and/or augmentation response. Superficial veins: Unremarkable. No thrombus in the visualized basilic and cephalic veins. Soft tissues: No acute abnormality. IMPRESSION: Normal right upper extremity duplex venous ultrasound. Electronically signed by: Jasen Hi M.D. 07/21/23 21:[address] 07/21/23 20:57 Exam(s): CT VENOGRAPHY EXAM: CT Venogram Chest With Intravenous Contrast CLINICAL HISTORY: Reason for exam: R upper chest pain after port removal, clot?. TECHNIQUE: Axial computed tomographic angiography images of the chest with intravenous contrast. CTDI is 12.53 mGy and DLP is 417.08 mGy-cm. Automated exposure control was utilized for the study. A dose lowering technique was utilized adhering to the principles of ALARA. 3D and MIP reconstructed images were created and reviewed. COMPARISON: No relevant prior studies available. FINDINGS: Chest wall venous structures: Subcutaneous gas and infiltration overlying the right pectoralis muscle anterior to the clavicle with small surgical clip consistent with a recent indwelling catheter removal. Small amount of focal subcutaneous hemorrhage. Gas extends into the subcutaneous fat deep to the pectoralis muscle to the level of the right subclavian vein. Inhomogeneous contrast opacification of the right subclavian vein. Thin linear filling defect just proximal to the SVC within the right brachiocephalic vein and superior vena cava consistent with small amount of intraluminal thrombus (coronal series 400 images 23 and 24). The visualized inferior aspect of the inferior vena cava, SVC and left-sided venous structures are all intact. Pulmonary arteries: No pulmonary embolism. Aorta: No thoracic aortic aneurysm or dissection. Lungs: No consolidation. Pleural space: No pleural effusion. No pneumothorax. Heart: No cardiomegaly. No pericardial effusion. No evidence of RV dysfunction. Bones/joints: No acute fracture. Degenerative changes of the spine. Soft tissues: Left breast implant. Abdomen: Multiple subcentimeter hypodense lesions scattered in the liver too small to characterize. IMPRESSION: Right anterior chest wall gas and infiltration consistent with recent indwelling catheter removal. Patent right axillary and subclavian vein through the SVC. Small nonoccluding thin linear filling defect within the right brachiocephalic vein consistent with minimal amount of thrombus. No pulmonary embolism. Electronically signed by: Jasen Hi M.D. 07/21/23 22:44 PM Hospital Course (1) Brachiocephalic vein thrombosis: Carmelita is a 73F w/ PMH of hypothyroidism, hypertension, osteoporosis and L breast cancer s/p resection who presents for pain in her neck and upper chest after Port-a-cath removal 07/19/23. #DVT- R Brachiocephalic Vein Thrombosis, provoked - Presenting w/ pain at right upper chest and neck w/ mild edema of the R hand/ arm - recent Port-a-Cath removal 07/19/23 - CT Venogram: Small nonoccluding thin linear filling defect within the right brachiocephalic vein consistent with minimal amount of thrombus - started on heparin gtt on admission - transitioned to Eliquis (10mg BID x10 days then 5mg BID) - tx for ~3 months total #Bradycardia/Arrhythmia - EKG on admission questionable for [place] heart block - however P waves are less suggestive of this and arrhythmia more likely her chronic PACs. No lightheadedness/dizziness. - Tele overnight showed more PACs if anything as well. - Repeat EKG in sinus vin - no longer with heart block. Hypertension - Cont. Triamterene-HCTZ outpatient Chronic Conditions: - Hypothyroidism: Continue Levothyroxine - Breast Cancer: Continue Anastrazole - Osteoporosis: Continue multivitamin, Vitamin D3, and Calcium supplements (2) History of removal of Port-a-Cath: (3) Hypertension: (4) Hypothyroidism: (5) History of left breast cancer: (6) Osteoporosis: Total Time Total Time Spent Total Time Spent (In Minutes): <30 Discharge Plan Discharge Items Patient Disposition: Home - Self-Care Reason For Visit: BRACHIOCEPHALIC VEIN THROMBUS, ARRHYTHMIA Discharge Diagnosis: DVT Condition on Discharge: Good Activity: Per Instructions section Non-emergency contact: Primary Care Provider Call non-emergency contact if: you have any medication questions, your symptoms worsen and you have a fever Follow-up/Referrals: Jermaine Mcclelland DO [Primary Care Provider] - Diet: Heart Healthy Addtl Attending Provider Instructions: You were found to have a clot in your right upper extremity which was likely causing your symptoms. The clot was most likely provoked from removal of your port. You will need about 3 months of blood thinners for treatment. Follow up with your PCP for further instruction. Pending Studies at Discharge: No Stand-Alone Forms: My [employer], Smoking Cessation Medications and DC Order Prescriptions: New Eliquis 5 mg tablet 5 mg PO BID Qty: 60 0RF Rx Instructions: 10mg (2 pills) BID x10 days then 5mg (1 pill) BID; next dose evening of 07/21 Continued calcium carbonate-vitamin D3 [Calcium with Vitamin D] 600 mg(1,500mg) -400 unit tablet 2 tab PO QDL anastrozole 1 mg tablet 1 mg PO QDL multivitamin Tablet 1 tab PO QPM levothyroxine 100 mcg tablet 125 mcg PO QAM triamterene-hydrochlorothiazid 37.5-25 mg tablet 0.5 tab PO Q OTHER DAY cholecalciferol (vitamin D3) [Vitamin D3] 1,000 unit Capsule 1,000 unit PO QDL Probiotic 3 billion cell Capsule 3,000 mmu cells PO QDL Discharge Orders: Discharge Order (Routine); Ordered 07/22/23 Ordered By: Perez eLigh Admission Data Admit Date/Time: 07/21/23 23:59 Attending Provider: Dino Ruano Admit Provider: Jermaine Mcclelland Primary Care Provider: Jermaine Mcclelland Other Providers: Sheri Foreman Other Interventions: Discharge Summary Assessment (RN) Last Done: 07/22/23 09:50 Supervising Physician Co-Signing Physician Notes I personally examined the patient and verified all rueda points of history and exam, discussed case, and agree with decision making with Dr Leigh Feeling much better, feeling up to getting out of here. No new problems, arm feels much better. Discussed clot, and how small it is, and suspecting that her symptoms were probably much more multifactorial than purely clot related alone. Vitals noted, in general she is awake and alert pleasant no distress. HEENT normocephalic atraumatic mucous membranes moist. Breathing unlabored no accessory muscle use good effort. Skin shows no rashes no pallor or icterus. Neuro without focal deficits. Arm painrecent port removal, she does have a small brachiocephalic DVT which probably does contribute, but I also wonder if some of it was not overdoing it with her yard work the day before having just had surgery, some of it regular postop bruising and swelling, and of course some related to the clot. At any rate, definitely need to manage the clotDOAChome on Eliquis, anticipate only needing 3 months of treatment given that it was such a clearly provoking set of circumstances that have now passed. Follow-up PCP. Safe/stable for home. Otherwise as above. Resident Activity Tracking Resident Involvement: Resident Care Provided Care Provided: Adult Hospital Medicine
[2023-07-22 09:33] LABS: ANTI-Xa, UFH(UnfractionatedHep 0.55 IU/ml (0.3-0.7)
[2023-07-22] MEDS: APIXABAN 5 MG TABLET PO SCH (09:38)
[2023-07-22 09:51] VITALS: PULSE 53
[2023-07-22] MEDS ORDERED: CHOLECALCIFEROL 25 MCG (1000 UNITS) TAB PO SCH (11:30)
[2023-07-22] MEDS ORDERED: CALCIUM 600MG + VIT D 400 IU TAB PO SCH (11:30)
[2023-07-22] MEDS ORDERED: ADVANCED PROBIOTIC 625 MG CAPSULE PO SCH (11:30)
[2023-07-22] MEDS ORDERED: ANASTROZOLE 1 MG TAB PO SCH (11:30)
--- NOTE | 2023-07-22 16:33 | Billing Data ---
Date of Service July 22, 2023 Coding Level of Care Code 73264 IN/OBS DISCH 30 MIN/LESS
--- NOTE | 2023-07-22 16:33 | Billing Data ---
Date of Service July 22, 2023 Coding Level of Care Code 49939 IN/OBS DISCH 30 MIN/LESS
[2023-07-22] MEDS ORDERED: MULTIVITAMIN TAB PO SCH (21:00)
--- NOTE | 2023-07-22 21:41 | Electrocardiogram Report ---
Test Reason : Blood Pressure : / mmHG Vent. Rate : 069 BPM Atrial Rate : 117 BPM P-R Int : 000 ms QRS Dur : 088 ms QT Int : 420 ms P-R-T Axes : 000 077 044 degrees QTc Int : 450 ms Sinus rhythm with sinus arrhythmia Suspect sinus node exit block Cannot rule out Anterior infarct (cited on or before 21-JUL-2023) Abnormal ECG When compared with ECG of 12-JUL-2023 09:28, Sinus arrhythmia is now present Confirmed by Kannan Slade ([id number]) on 07/22/2023 9:41:10 PM Referred By: REFERRED SELF Confirmed By:Kannan Slade
--- NOTE | 2023-07-22 21:52 | Electrocardiogram Report ---
Test Reason : Blood Pressure : / mmHG Vent. Rate : 049 BPM Atrial Rate : 049 BPM P-R Int : 166 ms QRS Dur : 086 ms QT Int : 438 ms P-R-T Axes : 082 053 033 degrees QTc Int : 395 ms Sinus bradycardia Possible Anteroseptal infarct (cited on or before 21-JUL-2023) Abnormal ECG When compared with ECG of 21-JUL-2023 21:41, (unconfirmed) HR has decreased Confirmed by Kannan Slade ([id number]) on 07/22/2023 9:51:48 PM Referred By: REFERRED SELF Confirmed By:Kannan Slade
[2023-07-23] MEDS ORDERED: TRIAMTERENE/HCTZ 37.5/25MG TAB PO SCH (09:00)
--- NOTE | 2023-07-24 12:56 | Electrocardiogram Report ---
Test Reason : Blood Pressure : / mmHG Vent. Rate : 059 BPM Atrial Rate : 059 BPM P-R Int : 156 ms QRS Dur : 096 ms QT Int : 444 ms P-R-T Axes : 077 071 061 degrees QTc Int : 439 ms Sinus bradycardia with Premature atrial complexes Otherwise normal ECG When compared with ECG of 21-JUL-2023 22:50, Premature atrial complexes are now Present Confirmed by Jostin Rogers ([id number]) on 07/24/2023 12:55:43 PM Referred By: REFERRED SELF Confirmed By:Jostin Rogers
--- OUTSIDE RECORDS SUMMARY | 2023-08-03 23:44 | External Medical Summary | Continuity of Care Document ---
Author Name Unknown Organization [facility] [id number] [address] [place] [address] [phone] Care Team Providers Care Chief Pilot Name Role Phone Jermaine Mcclelland Primary Care Physician [phone] Encounter [facility] [id number] Date(s): 07/20/23 - 07/20/23 [facility] [address] Medical [facility] [address] [address] [phone] Encounter Diagnosis Body mass index [BMI] 22.0-22.9, adult(Discharge Diagnosis) - 07/20/23 Osteoarthritis of left knee(Discharge Diagnosis) - 07/20/23 Knee pain(Discharge Diagnosis) - 07/20/23 Discharge Disposition: Home or Self Care Attending Physician: DO Murphy Gretchen Elizabeth Allergies, Adverse Reactions, Alerts Substance Criticality Severity Reaction Reaction Severity Status lisinopril hives Active Macrobid rash Active PCN (penicillin) rash Act netta Immunizations Given and Recorded Vaccine Date Status Refusal Reason SARS-CoV-2 (COVID-19) mRNA-1273 vaccine 1 10/10/21 Recorded SARS-CoV-2 (COVID-19) mRNA-1273 vaccine 2 06/22/21 Recorded SARS-CoV-2 (COVID-19) mRNA-1273 vaccine 3 05/31/20 Recorded SARS-CoV-2 (COVID-19) mRNA-1273 vaccine 4 05/03/20 Recorded tetanus/diphtheria/pertuss, acel (Tdap) 08/12/21 G iven tetanus/diphtheria/pertuss, acel (Tdap) 04/15/10 R ecorded influenza virus vaccine, inactivated 11/18/20 Justyn rded influenza virus vaccine, inactivated 11/05/19 Justyn rded influenza virus vaccine, inactivated 12/19/17 Give n influenza virus vaccine, inactivated 12/20/16 Justyn rded influenza virus vaccine, inactivated 01/18/16 Justyn rded influenza virus vaccine, inactivated 01/27/15 Justyn rded influenza virus vaccine, inactivated 11/10/13 Give n influenza virus vaccine, inactivated 01/27/13 Give n influenza virus vaccine, inactivated 5 02/15/12 Re corded pneumococcal 23-valent vaccine 11/05/19 Recorded pneumococcal 23-valent vaccine 04/19/01 Recorded zoster vaccine, inactivated 10/09/17 Recorded zoster vaccine, inactivated 06/18/17 Recorded pneumococcal 13-valent vaccine 01/10/17 Given zoster vaccine live 03/11/12 Recorded zoster vaccine live 6 03/11/12 Recorded 1Result Comment: 2021-10-19: Historical information-source unspecified 2Result Comment: 2021-08-12: Historical information-source unspecified 3Result Comment: 2020-10-18: Historical information-source unspecified 4Result Comment: 2020-10-18: Historical information-source unspecified 5Result Comment: [02/29/2012] [facility] [address] 6Result Comment: [04/25/2012] Received @ [facility] Medications albuterol CFC free 90 mcg/inh MDI Start: 03/26/17 11:17:00 AM EST, 2 puff, inhaled, q4h, Disp# 1 each, Refills: 11, use with spacer chamber, PRN: as needed for wheezing, Pharmacy: [facility] Start Date: 03/26/17 Status: Ordered anastrozole 1 mg oral tablet Start: 10/20/20 10:35:00 AM EDT, 1 tab, PO, Daily Start Date: 10/20/20 Status: Ordered betamethasone dipropionate 0.05% topical cream Start: 09/25/22 2:25:00 PM EDT, 1 appl, topical, Daily, Disp# 50 g, Pharmacy: [facility] Start Date: 09/25/22 Status: Ordered calcium (as carbonate)-vitamin D 600 mg-125 intl units (3.125 mcg) oral tablet Start: 07/20/20 3:15:00 PM EDT, 1 tab, PO, bid Start Date: 07/20/20 Status: Ordered hydrochlorothiazide-triamterene 25 mg-37.5 mg oral tablet Start: 01/22/23 3:21:00 PM EST, 0.5 tab, PO, Every other day, Disp# 45 tab, Refills: 2, Pharmacy: [facility] Start Date: 01/22/23 Status: Ordered levothyroxine 125 mcg (0.125 mg) oral tablet Start: 07/16/23 9:04:00 PM EDT, 1 tab, PO, Daily, Disp# 30 tab, Refills: 3, Pharmacy: [facility] Start Date: 07/16/23 Status: Ordered Multiple Vitamins oral tablet Start: 11/14/12 2:18:00 PM EDT, 1 tab, PO, Daily Start Date: 11/14/12 Status: Ordered Nerlynx 40 mg oral tablet Start: 01/11/22 1:33:00 PM EST, 6 tab, PO, Daily Start Date: 01/11/22 Status: Ordered Probiotic Formula Start: 04/12/20 1:19:00 PM EST Start Date: 04/12/20 Status: Ordered Prolia 60 mg syringe - PROVIDER injection Start: 11/03/21 4:42:00 PM EDT, 60 mg =, subQ, [id number] Start Date: 11/03/21 Status: Ordered Vitamin D3 1000 intl units oral capsule Start: 04/15/10 11:18:00 AM EST, 1 cap, PO, Daily, Disp# 100 cap, Stop: 04/15/34 11:19:00 AM EST, given to patient Start Date: 04/15/10 Stop Date: 04/15/34 Status: Ordered Mental Status 07/20/23 Barriers to Learning one year None evide nt Mandatory Health Literacy Documentation Yes Health Literacy Communication Barriers N ever Primary Language Palauan Problem List Condition Confirmation Course Effective Dates Status H ealth Status Informant Actinic keratosis Confirmed Active ASCVD (arteriosclerotic cardiovascular disease) 1 Confirmed Active High risk for hip fracture 2 Confirmed 06/21/20 Active Multiple nevi Confirmed Active External hemorrhoids Confirmed Active Finger injury 3 Confirmed Active History of cervical fracture Confirmed Active HYPERTENSION. Confirmed Active Hyponatremia Confirmed Active Ductal carcinoma in situ (DCIS) of left breast 4 Confirmed 11/12/19 Active Leukopenia Confirmed Active Adnexal mass Confirmed Active Neck pain on left side Confirmed Active Osteopenia Confirmed Active OTHER PSORIASIS AND SIMILAR DISORDERS EXCLUDING PSORIATIC ARTHROPATHY 5 Confirmed Active PSVT (paroxysmal supraventricular tachycardia) Confirmed Active Acne rosacea Confirmed Active Seborrheic keratoses Confirmed Active Lockhart angioma Confirmed Active Shoulder pain Confirmed Active Spider angioma Confirmed Active Tear of lateral meniscus of right knee Confirmed Active Varicose veins of right lower extremity Confirmed Active 1Aortic arch; seen on neck MRA. Carotids and all else clear. 2DEXA: 3% 10 year risk for hip fx. 3left 5th 42.5 cm., multiple invasive tumor, 3 + nodes with micrometastases, ER+/VT+/HER- 2/Gabriele + pT1c pN1a, triple positivie. Received 6 cycles THCP; post - reconstruction RT pending. 5scalp: Dr. maldonado Diagnosis Diagnosis Type Effective Dates Health Status Clinical Service Informant Body mass index [BMI] 22.0-22.9, adult Discharge Diagnosis 07/20/23 Non-Specified Osteoarthritis of left knee Discharge Diagnosis 07/20/23 Non-Specified Knee pain Discharge Diagnosis 07/20/23 Non-Specified Procedures Procedure Date Related Diagnosis Body Site Status Doppler ultrasonography of v enous structure BLE 1 09/16/21 Completed Ultrasound Upper Extremity Left 2 03/30/21 Completed Colonoscopy 3 10/04/20 Completed Insertion of silicone breast implant into left breast 4 09/18/20 Completed Insertion of silicone breast implant into left breast 5 08/12/20 Completed DEXA of hip and spine 6, 7 06/21/20 Completed Chest x-ray 8 03/02/[address] of whole body 9 02/25/20 Co mpleted Simple mastectomy of left breast 10 01/20/20 Completed MRI of bilateral breasts 11 12/03/19 Completed Stereotactically guided core needle biopsy of breast 12 11/12/19 Completed Unilateral left digital diag nostic mammogram 13 11/07/19 Completed Mammogram 14 10/21/18 Completed Mammogram 15 10/18/17 Completed Chest x-ray 16 03/22/17 Completed CXR - Chest X-ray 17 03/06/17 Comp leted DEXA of hip and spine 18 02/13/17 Completed Dual energy X-ray absorptiom etry (DEXA) scan T score 19 02/13/17 Completed Mammogram 20 10/09/16 Completed MRI of knee 21 04/24/16 Completed X-ray of both knees 22 04/06/16 Co mpleted Mammogram - screening 23, 24 10/06/15 Completed Colonoscopy 25, 26, 27 02/23/15 Co mpleted Mammogram - screening 28 09/26/13 Completed DEXA - Dual energy X-ray marleen ton absorptiometry 29 06/10/13 Completed Colonoscopy normal 02/22/05 Comple teofilo YULISA - Total abdominal hysterectomy 1995 Completed appendectomy 1984 Completed myomectomies 1984 Completed excision vocal cord nodule 1975 Completed tonsillectomy 1959 Completed Augmentation of bilateral breasts Completed I-131 therapy Completed Radiation therapy care 32 Completed 1Impression: No evidence of deep venous thrombus. 2impression: No sonographic evidence of left axillary adenopathy. prominent lef axillary lymph node noted on breast MRI of 01/16 was likely reactive to covid vaccine 3Colo to cecum, right colon diverticulum, repeat col[facility] 5 [facility]at [facility] 610 year fx. risk: major: 18%; hip: 3% 7at [facility] 8Interval placement of a right-sided Apywid-i-Jsfc catheter. The tip projects over the superior venacava. There is no pneumothorax. 91. No PET/CT evidence of metastatic disease 2. Postsurgical changes of a left mastectomy with placement of a tissue transmission maintenance supervisor. Increase left chest wall activity is felt to be postsurgical 3. Surgically absent uterus. 56 mm septated cystic lesion within the pelvis near the midline. This is not FDG avid. This likely is of ovarian origin. Pelvic ultrasonography is recommended in follow-up. 10at [facility]; 2/3 ax. lymph nodes positive. 11Impression: ACR BI RADS CATEGORY 4: Suspicious 1. Non-mass enhancement extending throughout the lower outer quadrant of the left breast middle through posterior depth measuring approximately 4.4 x 4.2 x 3.6 cm. This most likely represents additional DCIS and it should be noted that the non-mass enhancement extends throughout a larger extend than the visualized mammographic calcifications. 2. Focal 12 x 13 mm mass enhancement within the area of non-mass enhancement in the far posterior left lower outer quadrant adjacent to the pectoralis muscle could represent invasive disease. Targeted second look ultrasound, possible ultrasound-guided core biopsy is recommended. No left pectoralis muscle enhancement or invasion identified. 3. Irregular and spiculated 7 x 6 x 6 mm enhancing mass in the 12:00 middle one third of the left breast, concerning for multicentric disease. Targeted second look ultrasound, possible ultrasound-guided core biopsy is recommended. Axillary ultrasound with possible lymph node sampling is recommended. 4. Focal eccentric cortical thickening of an inferior left axillary lymph node measuring up to 7 mm. Targeted left axillary ultrasound with possible lymph node sampling is recommended. 5. No MRI evidence of malignancy in the right breast. 12Status post left breast stereotactic/tomosynthesis guided biopsy of pleomorphic calcifications in alinear distribution within the 3:00 to 4:00 left breast with hourglass shaped biopsy marker placed at the site. 13Impression: ACR BI RADS CATEGORY 4: Suspicious New pleomorphic calcifications in a linear/segmental distribution in the left inferior breast at approximately 6-7 o'clock. The calcifications are indeterminate for malignancy and stereotactic biopsyis recommended for further evaluation. The patient has been verbally notified of the results. 14Impression There is no mammographic eviednce of malignancy 15IMPRESSION: ACR BI-RADS CATEGORY 2: BENIGN There is no mammographic evidence of malignancy. A 1 year screening mammogram is recommended.(10/19/2018) The patient will receive written notification of the results. 16Improving right infrahilar and right basilar infiltrate. Moderate residual 17Right lower lobe infiltrate. 1810 yr risk: major 9.7%, hip: 1.9% 19With a z-score of -0.2, this patient's BMD is considered within normal limits relative to their age. Even so, they may be considered osteopenic or osteoporotic, which is normal for this age. Based on these results, a follow up exam is recommended in January 2019. 20Impression: There is no mammographic evidence of malignancy. A 1 year screening mammogram is recommended. 21RIGHT KNEE Focal hairline tear of both the posterior medial and lateral meniscus In both cases, the tear extends to the inferior meniscal surface No significant meniscal substance loss Edema of the infrapatellar fat pad Mild chondromalacia patella 22Right knee: Mild arthritis, most pronounced in patellofrmoral compartment. Possible small right knee joint effusion. Left knee: Mild arthritis, most pronounced in medial and patellofemoral compartments. 23No malignancy. One years screening recommended. 24No mammographic evidence of malignancy. A 1 year screening mammogram is recommended. 25COLO to cecum, tortous, redundant colon, polyp TC cold snare, polyp 20 cm hot snared 26repeat colo 5 years 27path TC tubular adenoma, 20 cm hyperplastic 28There is no mammographic evidence of malignancy. A 1 year screening mammogram is recommended. 29AP Spine L1-L4 T-score of 0.5 Femur neck Left T-score of -1.5 Femur neck Right T-score of -1.3 30for anemia, DUB. 31at [facility]: had abd. fat transfer, Had left breast implant 32at [facility]; left breast Vital Signs Most recent to oldest [Reference Range]: 1 Height 173 cm (07/20/23 7:53 AM) Patient Weight 68.8 kg (07/20/23 7:53 AM) Body Mass Index 22.99 kg/m2 (07/20/23 7:53 AM) Heart Rate 53 bpm (07/20/23 7:53 AM) Respiratory Rate 12 br/min (07/20/23 7:53 AM) Blood Pressure 148/76mmHg (07/20/23 7:53 AM) Cuff Pulse Pressure 72 mmHg (07/20/23 7:53 AM) Social History Social History Type Response Tobacco Former smoker, Cigar ettes, Started age 24 Years. Stopped age 25 Years. Smoking Status Never smoked cigaret norma Sex Female Patient Care team information Care Team Personnel Name: MD Humble, Roberth Smith Position: Physician - Family Med Member Role: Lifetime Relationship Address: Address: [address] [place] [address] [place] Name: DO Haines Franklin J Position: Physician - Family Med Member Role: Lifetime Relationship Address: Address: [address] [place] [address] [place] Name: DO Mcclelland Alonna Paige Position: Resident Member Role: Primary Care Provider Address: Address: [address] [place] [address] Care Team Related Persons Name: TAMMY FILIBERTO Address: home [address] [place] [address] [phone]
--- NOTE | 2023-08-07 11:20 | Coding Query ---
c CODING QUERY To promote full compliance with coding requirements relating to patient care, provider participation is requested in all cases of bi solutions architect uncertainty. Please assist us with the question(s) below: Coding Question(s): There is documentation of, "DVT- R Brachiocephalic Vein Thrombosis, provoked - Presenting w/ pain at right upper chest and neck w/ mild edema of the R hand/arm - recent Port-a-Cath removal 07/19/23", and the Discharge Summary documents, "You were found to have a clot in your right upper extremity which was likely causing your symptoms. The clot was most likely provoked from removal of your port", and, "Arm painrecent port removal, she does have a small brachiocephalic DVT which probably does contribute, but I also wonder if some of it was not overdoing it with her yard work the day before having just had surgery, some of it regular postop bruising and swelling, and of course some related to the clot". Please specify below in your clinical opinion, regarding the DVT- R Brachiocephalic Vein Thrombosis, provoked: ( x) likely a postprocedural complication from the removal of the port-a-cath procedure, in addition due to overdoing it with her yard work ( ) likely a complication of the port-a-cath, in addition due to overdoing it with her yard work ( ) likely Not a complication, but caused by overdoing it with her yard work ( ) likely caused by Other: Please Specify Physician's Response(s): Thank you Ivelisse Toussaint Principal Diagnosis: "that condition established after study, to be chiefly responsible for occasioning the admission of the patient to the hospital for care." Co-Existing Principal Diagnosis: "when two or more diagnoses equally meet the criteria for principal diagnosis as determined by the circumstances of admission, diagnostic work up, and/or therapy provided, and the Alphabetic Index, Tabular List, or another coding guideline does not provide sequencing direction, any one of the diagnoses may be sequenced first." "When the physician has documented what appears to be a current diagnosis in the body of the record, but has not included the diagnosis in the final diagnostic statement, the physician should be asked whether the diagnosis should be added." (Source Coding Clinic 2 QTR90. p3-4) BATSHEVA
== END 2023-07-22 11:03 | disposition home or self-care (01) | DRG 315 ==
LOC: SUATTDRO → ED 18:58 → SUATTDRO 23:59 → OBSVTOIN 23:59 → INTOOBSV 23:59 → 2N 23:59